=== PATIENT | female | born 1965 | race Caucasian/White ===

== ENCOUNTER 2017-09-21 07:28 | Day surgery (SDC) | payer OTHER ==
[~2017-09-21] VITALS: Ht 160 cm; Wt 84.4 kg
[~2017-09-21 07:28] MED LIST: LEVOFLOXACIN 500 MG/D5W 100 ML IV ONE
[2017-09-21 08:29] VITALS: BP_SYST 104
== END 2017-09-21 10:15 | disposition home or self-care (01) ==
LOC: SDS 07:28 → SMU 07:29 → SDS 10:15 → EDSTATUS 12:30
PROVIDERS: ATTEND Surgery
DX: N63.0 Unspecified lump in unspecified breast (principal)
CPT/HCPCS: 19081; 82962; J1956; J7120

== ENCOUNTER 2019-04-23 11:22 | Day surgery (SDC) | payer OTHER ==
[~2019-04-23] VITALS: Ht 160 cm; Wt 93.0 kg
[2019-04-23] MEDS ORDERED: LIDOCAINE 2%, 20 ML MDV INJ ONE (11:23)
[2019-04-23] MEDS ORDERED: IOHEXOL 300 mgI/mL, 50 mL INFUS..BTL IV ONE (11:23)
[2019-04-23] MEDS ORDERED: BUPIVACAINE /PF 0.25% 30 ML VIAL INJ ONE (11:23)
[2019-04-23] MEDS ORDERED: methylPREDNISolone ACETATE 40 MG/ML IM ONE (11:23)
[2019-04-23] MEDS ORDERED: LR 1,000 ML IV.SOLN IV ONE (13:35)
[2019-04-23] MEDS ORDERED: MIDAZOLAM HCL 5 MG/5 ML VIAL ONE (13:35)
[2019-04-23] MEDS ORDERED: DIPHENHYDRAMINE INJ 50 MG/ML VIAL ONE (13:36)
[2019-04-23 17:21] VITALS: BP_SYST 118
== END 2019-04-23 15:35 | disposition home or self-care (01) ==
LOC: SDS 11:22
PROVIDERS: ATTEND Internal Medicine
DX: M51.16 Intervertebral disc disorders with radiculopathy, lumbar region (principal); M54.5 Low back pain; Z79.899 Other long term (current) drug therapy; I10 Essential (primary) hypertension; E11.9 Type 2 diabetes mellitus without complications; Z98.890 Other specified postprocedural states
CPT/HCPCS: 62323; 82962; J1030; J2001; J2250; J3490; J7120; Q9967; 76000; J1200